=== PATIENT | female | born 1945 | race African-American/Black ===

== ENCOUNTER 2017-06-10 07:03 | Inpatient (IN) | payer MEDICARE, MEDICAID ==
[~2017-06-10] VITALS: Ht 165.1 cm; Wt 49.9 kg
[~2017-06-10 07:03] MED LIST: ACET1TAB12 PO; AMLO10TA80 PO; ASPI-1160 PO; ATEN-42 PO; ATOR10TA PO; LEVO250T2 PO
[2017-06-10 08:12] LABS: BASOPHILS % 0.9 % (0.0-2.0); EOSINOPHILS % 3.6 % (0.0-5.0); HEMATOCRIT. 41.9 % (36.0-48.0); HEMOGLOBIN. 13.9 g/dL (12.0-16.0); LYMPHOCYTES % 43.6 % (20.0-50.0); MEAN CORPUSCULAR HEMOGLOBIN 29.8 pg (28.0-32.0); MEAN CORPUSCULAR VOLUME 89.8 fL (81.0-99.0); MEAN PLATELET VOLUME 7.5 fl (7.4-10.4); MONOCYTES % 6.5 % (2.0-8.0); NEUTROPHILS % 45.4 % (40.0-76.0); PARTIAL THROMBOPLASTIN TIME 24.8 sec (23.4-31.0); PLATELET 300 x1000/uL (130-400); PROTHROMBIN TIME 10.4 sec (9.4-11.6); RED BLOOD CELL COUNT 4.66 mill/uL (4.2-5.4); RED CELL DISTRIBUTION WIDTH 13.8 % (11.6-14.6)
[2017-06-10 08:15] LABS: CHLORIDE 105 mEq/L (98-107)
[2017-06-10 08:21] LABS: CREATINE KINASE 40 IU/L (26-192); TROPONIN I < 0.02 ng/mL (0.00-0.04)
[2017-06-10 08:22] LABS: CREATINE KINASE MB FRACTION < 0.5 ng/mL (0.5-3.6)
[2017-06-10] MEDS ORDERED: NITROGLYCERIN OINT 1GM/INCH UDPKT TD STA (08:40)
[2017-06-10] MEDS ORDERED: ASPIRIN 81MG TABLET PO STA (08:40)
[2017-06-10] MEDS ORDERED: ENALAPRIL 2.5MG/2ML VIAL 2ML IV ONE (08:45)
[2017-06-10] MEDS ORDERED: CEFTRIAXONE 1 G PREMIX 50 ML IV ONE (09:15)
[2017-06-10 09:54] LABS: KETONES URINE NEGATIVE (NEGATIVE); LEUKOCYTE ESTERASE URINE NEGATIVE (NEGATIVE); NITRITE URINE NEGATIVE (NEGATIVE); OCCULT BLOOD URINE NEGATIVE (NEGATIVE); PH URINE 7.5 (4.5-8.0); PROTEIN URINE NEGATIVE (NEGATIVE); SPECIFIC GRAVITY URINE 1.009 (1.005-1.030); UROBILINOGEN URINE 0.2 E.U./dL (0.2-1.0)
[2017-06-10 09:55] LABS: CLARITY URINE CLEAR (CLEAR); COLOR URINE YELLOW (YELLOW)
[2017-06-10] MEDS ORDERED: HYDROCODONE/ACETAMINOPHEN 5/325MG TABLET PO PRN (17:30)
[2017-06-10] MEDS ORDERED: DOCUSATE SODIUM 100MG CAPSULE PO PRN (17:30)
[2017-06-10] MEDS ORDERED: CLONIDINE 0.1MG TABLET PO PRN (17:30)
[2017-06-10] MEDS ORDERED: GUAIFENESIN 200MG/10ML SUGAR FREE UDC PO PRN (17:30)
[2017-06-10] MEDS ORDERED: MORPHINE SULFATE 4 MG/ML CPJ (NOT FOR IM USE) IV PRN (17:30)
[2017-06-10] MEDS ORDERED: ONDANSETRON HCL 4MG/2ML VIAL IV PRN (17:30)
[2017-06-10] MEDS: ACETAMINOPHEN 325MG TABLET PO PRN (17:56)
[2017-06-11] VITALS (7 sets, daily range): BP systolic 119–136; BP diastolic 62–86
[2017-06-11 00:35] LABS: CREATINE KINASE 34 IU/L (26-192); CREATINE KINASE MB FRACTION 0.7 ng/mL (0.5-3.6); TROPONIN I < 0.02 ng/mL (0.00-0.04)
[2017-06-11] MEDS: ASPIRIN 81MG EC TABLET PO SCH (08:55)
[2017-06-11] MEDS: AMLODIPINE 10MG TABLET PO SCH (08:55)
[2017-06-11] MEDS: ENOXAPARIN 40MG/0.4ML SYR SUBCUT SCH (08:56)
[2017-06-11 09:49] LABS: BASOPHILS % 0.8 % (0.0-2.0); EOSINOPHILS % 3.2 % (0.0-5.0); HEMATOCRIT. 38.3 % (36.0-48.0); HEMOGLOBIN. 12.6 g/dL (12.0-16.0); LYMPHOCYTES % 34.7 % (20.0-50.0); MEAN CORPUSCULAR HEMOGLOBIN 29.4 pg (28.0-32.0); MEAN CORPUSCULAR VOLUME 89.8 fL (81.0-99.0); MEAN PLATELET VOLUME 7.8 fl (7.4-10.4); MONOCYTES % 6.7 % (2.0-8.0); NEUTROPHILS % 54.6 % (40.0-76.0); PLATELET 279 x1000/uL (130-400); RED BLOOD CELL COUNT 4.27 mill/uL (4.2-5.4); RED CELL DISTRIBUTION WIDTH 13.8 % (11.6-14.6)
[2017-06-11 12:36] LABS: CHLORIDE 104 mEq/L (98-107)
[2017-06-11 12:47] LABS: CREATINE KINASE 36 IU/L (26-192); CREATINE KINASE MB FRACTION < 0.5 ng/mL (0.5-3.6); HDL CHOLESTEROL 48 mg/dL (40-59); LDL CHOLESTEROL 129 mg/dL (5-100); TROPONIN I < 0.02 ng/mL (0.00-0.04)
[2017-06-12] VITALS: BP 121/53
[2017-06-12 04:00] VITALS: BP 125/76
[2017-06-12] MEDS: ACETAMINOPHEN 325MG TABLET PO PRN (05:22)
[2017-06-12 08:00] VITALS: BP_SYST 123; BP_SYST 146; BP_DIAS 69; BP_DIAS 70
[2017-06-12] MEDS: AMLODIPINE 10MG TABLET PO SCH (09:04)
[2017-06-12] MEDS: ASPIRIN 81MG EC TABLET PO SCH (09:04)
[2017-06-12] MEDS: ENOXAPARIN 40MG/0.4ML SYR SUBCUT SCH (09:05)
[2017-06-12] MEDS ORDERED: REGADENOSON 0.4 MG/5 ML IV ONE (10:30)
[2017-06-12 12:00] VITALS: BP 123/69
[2017-06-12 13:40] LABS: T4 FREE 1.01 ng/dL (0.76-1.46)
== END 2017-06-12 14:00 | disposition home or self-care (01) | DRG 244 ==
LOC: ER 07:44 → EDBEDREQ 08:30 → 6WST 09:28 → EDBEDREQ 09:36 → SUPCPDRO 17:23 → ENRESERV 21:24
PROVIDERS: ADMIT Hospitalist; ATTEND Hospitalist
DX: K57.90 Diverticulosis of intestine, part unspecified, without perforation or abscess without bleeding (principal); I10 Essential (primary) hypertension; R10.9 Unspecified abdominal pain; R07.89 Other chest pain; M19.90 Unspecified osteoarthritis, unspecified site; Z88.8 Allergy status to other drugs, medicaments and biological substances; Z79.899 Other long term (current) drug therapy; Z79.82 Long term (current) use of aspirin; Z98.891 History of uterine scar from previous surgery; Z68.1 Body mass index [BMI] 19.9 or less, adult
CPT/HCPCS: 36415; 71045; 74176; 80053; 80061; 81003; 82550; 82553; 83036; 83690; 83880; 84439; 84443; 84484; 85025; 85379; 85610; 85730; 87086; 93005; 93306; 93970; 96365; 96375; 99291; C1893; J0696; J1650; J3490

== ENCOUNTER 2018-05-11 08:01 | Inpatient (IN) | payer MEDICARE, MEDICAID ==
[~2018-05-11] VITALS: Ht 152.4 cm; Wt 53.8 kg
[~2018-05-11 08:01] MED LIST changes: -ATOR10TA PO; -LEVO250T2 PO
[2018-05-11 10:02] LABS: BASOPHILS % 0.7 % (0.0-2.0); EOSINOPHILS % 1.2 % (0.0-5.0); HEMATOCRIT. 47.5 % (36.0-48.0); HEMOGLOBIN. 15.6 g/dL (12.0-16.0); LYMPHOCYTES % 22.8 % (20.0-50.0); MEAN CORPUSCULAR HEMOGLOBIN 29.2 pg (28.0-32.0); MEAN CORPUSCULAR VOLUME 89.3 fL (81.0-99.0); MEAN PLATELET VOLUME 7.4 fl (7.4-10.4); MONOCYTES % 4.4 % (2.0-8.0); NEUTROPHILS % 70.9 % (40.0-76.0); PLATELET 337 x1000/uL (130-400); RED BLOOD CELL COUNT 5.33 mill/uL (4.2-5.4); RED CELL DISTRIBUTION WIDTH 14.2 % (11.6-14.6)
[2018-05-11 10:07] LABS: CHLORIDE 102 mEq/L (98-107)
[2018-05-11] MEDS ORDERED: SODIUM CHLORIDE 0.9% 1,000 ML IV ONE (10:33)
[2018-05-11] MEDS ORDERED: MECLIZINE 25MG TABLET PO ONE (10:45)
[2018-05-11 11:35] LABS: CLARITY URINE CLEAR (CLEAR); KETONES URINE NEGATIVE (NEGATIVE); LEUKOCYTE ESTERASE URINE NEGATIVE (NEGATIVE); NITRITE URINE NEGATIVE (NEGATIVE); OCCULT BLOOD URINE NEGATIVE (NEGATIVE); PROTEIN URINE NEGATIVE (NEGATIVE); SPECIFIC GRAVITY URINE 1.008 (1.005-1.030); UROBILINOGEN URINE 0.2 E.U./dL (0.2-1.0)
[2018-05-11 11:37] LABS: COLOR URINE PALE YELLOW (YELLOW)
[2018-05-11 14:00] VITALS: BP_SYST 127; BP_SYST 130; BP_SYST 139; BP_DIAS 66; BP_DIAS 68; BP_DIAS 70
[2018-05-11] MEDS ORDERED: CLONIDINE 0.1MG TABLET PO PRN (14:30)
[2018-05-11] MEDS ORDERED: ONDANSETRON HCL 4MG/2ML INJ IV PRN (14:30)
[2018-05-11] MEDS ORDERED: DOCUSATE SODIUM 100MG CAPSULE PO PRN (14:30)
[2018-05-11] MEDS ORDERED: MAGNESIUM/ALUMINUM HYDROXIDE/SIMETHICONE 30ML UDC PO PRN (14:30)
[2018-05-11] MEDS ORDERED: HYDROCODONE/ACETAMINOPHEN 5/325MG TABLET PO PRN (14:30)
[2018-05-11] MEDS ORDERED: GUAIFENESIN 200MG/10ML SUGAR FREE UDC PO PRN (14:30)
[2018-05-11] MEDS ORDERED: ACETAMINOPHEN 325MG TABLET PO PRN (14:30)
[2018-05-11 14:38] VITALS: BP 130/68
[2018-05-11 16:00] VITALS: BP 138/70
[2018-05-11 20:00] VITALS: BP 118/75
[2018-05-12] VITALS: BP 99/62
[2018-05-12 00:36] LABS: CREATINE KINASE 39 IU/L (26-192)
[2018-05-12 00:37] LABS: CREATINE KINASE MB FRACTION < 1.0 ng/mL (0.5-3.6)
[2018-05-12 04:00] VITALS: BP 99/55
[2018-05-12 07:15] LABS: BASOPHILS % 0.6 % (0.0-2.0); HEMATOCRIT. 39.2 % (36.0-48.0); HEMOGLOBIN. 12.8 g/dL (12.0-16.0); LYMPHOCYTES % 42.5 % (20.0-50.0); MEAN CORPUSCULAR HEMOGLOBIN 29.1 pg (28.0-32.0); MEAN CORPUSCULAR VOLUME 89.3 fL (81.0-99.0); MEAN PLATELET VOLUME 7.6 fl (7.4-10.4); MONOCYTES % 7.4 % (2.0-8.0); NEUTROPHILS % 47.5 % (40.0-76.0); PLATELET 289 x1000/uL (130-400); RED BLOOD CELL COUNT 4.39 mill/uL (4.2-5.4)
[2018-05-12 07:50] LABS: CHLORIDE 107 mEq/L (98-107)
[2018-05-12 08:00] VITALS: BP 116/69
[2018-05-12 08:13] LABS: CREATINE KINASE 33 IU/L (26-192); LDL CHOLESTEROL 129 mg/dL (5-100)
[2018-05-12 08:14] LABS: HDL CHOLESTEROL 49 mg/dL (40-59)
[2018-05-12 08:17] LABS: CREATINE KINASE MB FRACTION < 1.0 ng/mL (0.5-3.6)
[2018-05-12] MEDS: HYDROCHLOROTHIAZIDE 25MG TABLET PO SCH (08:40)
[2018-05-12 12:00] VITALS: BP_SYST 119; BP_SYST 124; BP_SYST 135; BP_DIAS 68; BP_DIAS 69; BP_DIAS 78
[2018-05-12] MEDS: PANTOPRAZOLE SODIUM 40 MG/VIAL IV SCH (13:13)
[2018-05-12 16:00] VITALS: BP 131/65
[2018-05-12 20:00] VITALS: BP_SYST 112; BP_SYST 123; BP_SYST 131; BP_SYST 137; BP_DIAS 66; BP_DIAS 71
[2018-05-13] VITALS (8 sets, daily range): BP systolic 81–157; BP diastolic 49–82
[2018-05-13] MEDS: HYDROCHLOROTHIAZIDE 25MG TABLET PO SCH (09:00)
[2018-05-13] MEDS: PANTOPRAZOLE SODIUM 40 MG/VIAL IV SCH (09:17)
[2018-05-13] MEDS: SODIUM CHLORIDE 0.9% 1,000 ML IV SCH ×2 (13:00→22:41)
[2018-05-14] VITALS: BP 132/68
[2018-05-14 04:00] VITALS: BP 107/60
[2018-05-14 07:15] LABS: BASOPHILS % 0.6 % (0.0-2.0); CHLORIDE 104 mEq/L (98-107); EOSINOPHILS % 3.3 % (0.0-5.0); HEMATOCRIT. 36.8 % (36.0-48.0); HEMOGLOBIN. 12.3 g/dL (12.0-16.0); LYMPHOCYTES % 50.3 % (20.0-50.0); MEAN CORPUSCULAR HEMOGLOBIN 29.7 pg (28.0-32.0); MEAN CORPUSCULAR VOLUME 89.2 fL (81.0-99.0); MEAN PLATELET VOLUME 7.5 fl (7.4-10.4); NEUTROPHILS % 37.8 % (40.0-76.0); PLATELET 265 x1000/uL (130-400); RED BLOOD CELL COUNT 4.13 mill/uL (4.2-5.4)
[2018-05-14 08:00] VITALS: BP 120/59
[2018-05-14] MEDS ORDERED: FAMOTIDINE 20MG/2ML VIAL IV SCH (09:00)
[2018-05-14] MEDS: HYDROCHLOROTHIAZIDE 25MG TABLET PO SCH (09:00)
[2018-05-14 12:00] VITALS: BP 109/52
[2018-05-14 12:26] VITALS: BP 113/63
[2018-05-14 12:27] VITALS: BP 131/79
[2018-05-14] MEDS ORDERED: ATORVASTATIN CALCIUM 20MG TABLET PO SCH (21:00)
== END 2018-05-14 15:00 | disposition home health service (06) | DRG 48 ==
LOC: ER 08:01 → ENRESERV 09:44 → 5WST 12:12 → EDBEDREQ 12:15 → SUPCPDRO 14:08
PROVIDERS: ADMIT Hospitalist; ATTEND Hospitalist
DX: G90.8 Other disorders of autonomic nervous system (principal); J44.9 Chronic obstructive pulmonary disease, unspecified; E78.5 Hyperlipidemia, unspecified; I10 Essential (primary) hypertension; I95.1 Orthostatic hypotension; R10.9 Unspecified abdominal pain; Z86.73 Personal history of transient ischemic attack (TIA), and cerebral infarction without residual deficits; Z88.8 Allergy status to other drugs, medicaments and biological substances; Z79.899 Other long term (current) drug therapy; Z98.891 History of uterine scar from previous surgery
CPT/HCPCS: 36415; 71045; 76700; 80061; 82550; 82553; 82962; 83735; 83880; 84484; 93005; 93306; 93880; 99285; C1893; C9113; J2405; J3490; J7030; J8597; A4315

== ENCOUNTER 2018-07-15 19:44 | Inpatient (IN) | payer MEDICARE, MEDICAID ==
[~2018-07-15] VITALS: Ht 152.4 cm; Wt 60.6 kg
[~2018-07-15 19:44] MED LIST changes: -ATEN-42 PO
[2018-07-15] MEDS ORDERED: NITROGLYCERIN OINT 1GM/INCH UDPKT TD ONE (20:30)
[2018-07-15 20:33] LABS: BASOPHILS % 1.3 % (0.0-2.0); EOSINOPHILS % 0.6 % (0.0-5.0); HEMATOCRIT. 41.8 % (36.0-48.0); HEMOGLOBIN. 14.2 g/dL (12.0-16.0); LYMPHOCYTES % 30.4 % (20.0-50.0); MEAN CORPUSCULAR HEMOGLOBIN 29.6 pg (28.0-32.0); MEAN CORPUSCULAR VOLUME 87.3 fL (81.0-99.0); MEAN PLATELET VOLUME 7.6 fl (7.4-10.4); MONOCYTES % 4.4 % (2.0-8.0); NEUTROPHILS % 63.3 % (40.0-76.0); PLATELET 360 x1000/uL (130-400); RED BLOOD CELL COUNT 4.79 mill/uL (4.2-5.4); RED CELL DISTRIBUTION WIDTH 13.7 % (11.6-14.6)
[2018-07-15 20:36] LABS: CHLORIDE 105 mEq/L (98-107)
[2018-07-15 20:38] LABS: PARTIAL THROMBOPLASTIN TIME 24.9 sec (23.4-31.0); PROTHROMBIN TIME 10.1 sec (9.6-11.0)
[2018-07-15 20:47] LABS: CLARITY URINE CLEAR (CLEAR); COLOR URINE YELLOW (YELLOW); KETONES URINE 1+ (NEGATIVE); LEUKOCYTE ESTERASE URINE 1+ (NEGATIVE); NITRITE URINE NEGATIVE (NEGATIVE); OCCULT BLOOD URINE TRACE (NEGATIVE); PH URINE 5.5 (4.5-8.0); PROTEIN URINE NEGATIVE (NEGATIVE); SPECIFIC GRAVITY URINE 1.012 (1.005-1.030); UROBILINOGEN URINE 0.2 E.U./dL (0.2-1.0)
[2018-07-15] MEDS ORDERED: HEPARIN 25,000 UNITS PREMIX 500 ML IV ONE (21:15)
[2018-07-15] MEDS ORDERED: METOPROLOL TARTRATE 25MG TABLET PO ONE (21:15)
[2018-07-15] MEDS ORDERED: HEPARIN 5000 UNITS/ML VIAL IV ONE (21:15)
[2018-07-15] MEDS ORDERED: HYDROCODONE/ACETAMINOPHEN 5/325MG TABLET PO PRN (21:45)
[2018-07-15] MEDS ORDERED: IPRATROPIUM/ALBUTEROL 0.5-3(2.5)MG/3ML NEB INH PRN (21:45)
[2018-07-15] MEDS ORDERED: CLONIDINE 0.1MG TABLET PO PRN (21:45)
[2018-07-15] MEDS ORDERED: MAGNESIUM/ALUMINUM HYDROXIDE/SIMETHICONE 30ML UDC PO PRN (21:45)
[2018-07-15] MEDS ORDERED: HEPARIN BOLUS PRN aPTT 30-44 IV (22:00)
[2018-07-15] MEDS ORDERED: HEPARIN BOLUS PRN aPTT <30 IV (22:00)
[2018-07-15] MEDS ORDERED: HEPARIN 25,000 UNITS PREMIX 500 ML IV SCH (22:00)
[2018-07-15] MEDS ORDERED: ATORVASTATIN CALCIUM 40MG TABLET PO NR (22:45)
[2018-07-16] VITALS (12 sets, daily range): BP systolic 87–115; BP diastolic 48–68
[2018-07-16] MEDS: ONDANSETRON HCL 4MG/2ML INJ IV PRN (00:20)
[2018-07-16 00:21] LABS: CHLORIDE 106 mEq/L (98-107)
[2018-07-16 00:29] LABS: CREATINE KINASE 117 IU/L (26-192)
[2018-07-16] MEDS ORDERED: ATORVASTATIN CALCIUM 40MG TABLET PO SCH (01:00)
[2018-07-16] MEDS ORDERED: HEPARIN 25,000 UNITS PREMIX 500 ML IV SCH (04:15)
[2018-07-16 06:04] LABS: BASOPHILS % 0.6 % (0.0-2.0); EOSINOPHILS % 0.7 % (0.0-5.0); HEMOGLOBIN. 14.1 g/dL (12.0-16.0); LYMPHOCYTES % 25.1 % (20.0-50.0); MEAN PLATELET VOLUME 8.2 fl (7.4-10.4); NEUTROPHILS % 67.6 % (40.0-76.0); PLATELET 303 x1000/uL (130-400); RED BLOOD CELL COUNT 4.71 mill/uL (4.2-5.4); RED CELL DISTRIBUTION WIDTH 13.9 % (11.6-14.6)
[2018-07-16] MEDS: ASPIRIN 81MG EC TABLET PO SCH (08:16)
[2018-07-16] MEDS: ENOXAPARIN 40MG/0.4ML SYR SUBCUT SCH (08:17)
[2018-07-16] MEDS: METOPROLOL TARTRATE 25MG TABLET PO SCH ×2 (08:17→21:00)
[2018-07-16 08:45] LABS: *AMPHETAMINES SCREEN URINE NEGATIVE (NEGATIVE); *BARBITURATES SCREEN URINE NEGATIVE (NEGATIVE); *BENZODIAZEPINES SCREEN URINE NEGATIVE (NEGATIVE); *COCAINE SCREEN URINE NEGATIVE (NEGATIVE)
[2018-07-16 08:46] LABS: CANNABINOID URINE SCREEN NEGATIVE (NEGATIVE); METHADONE URINE SCREEN NEGATIVE (NEGATIVE); OPIATES URINE SCREEN NEGATIVE (NEGATIVE); PHENCYCLIDINE URINE SCREEN NEGATIVE (NEGATIVE)
[2018-07-16 09:44] LABS: CHLORIDE 106 mEq/L (98-107)
[2018-07-16 09:51] LABS: LDL CHOLESTEROL 147 mg/dL (5-100)
[2018-07-16 09:53] LABS: CREATINE KINASE 116 IU/L (26-192); HDL CHOLESTEROL 55 mg/dL (40-59)
[2018-07-16 09:57] LABS: CREATINE KINASE MB FRACTION 8.1 ng/mL (0.5-3.6)
[2018-07-17] VITALS (12 sets, daily range): BP systolic 93–131; BP diastolic 55–85
[2018-07-17 08:14] LABS: BASOPHILS % 1.2 % (0.0-2.0); EOSINOPHILS % 2.3 % (0.0-5.0); HEMATOCRIT. 37.9 % (36.0-48.0); HEMOGLOBIN. 12.7 g/dL (12.0-16.0); LYMPHOCYTES % 49.9 % (20.0-50.0); MEAN CORPUSCULAR HEMOGLOBIN 29.7 pg (28.0-32.0); MEAN CORPUSCULAR VOLUME 88.5 fL (81.0-99.0); MEAN PLATELET VOLUME 7.6 fl (7.4-10.4); MONOCYTES % 7.6 % (2.0-8.0); PLATELET 288 x1000/uL (130-400); RED BLOOD CELL COUNT 4.28 mill/uL (4.2-5.4); RED CELL DISTRIBUTION WIDTH 13.8 % (11.6-14.6)
[2018-07-17] MEDS ORDERED: DEXTROSE 50% WATER 50ML SYRINGE IV PRN (08:30)
[2018-07-17 08:50] LABS: CHLORIDE 106 mEq/L (98-107)
[2018-07-17] MEDS: METOPROLOL TARTRATE 25MG TABLET PO SCH ×2 (09:00→21:25)
[2018-07-17] MEDS: ENOXAPARIN 40MG/0.4ML SYR SUBCUT SCH (09:09)
[2018-07-17] MEDS: DOCUSATE SODIUM 100MG CAPSULE PO PRN (09:09)
[2018-07-17] MEDS: ASPIRIN 81MG EC TABLET PO SCH (09:09)
[2018-07-17] MEDS ORDERED: ENOXAPARIN 60MG/0.6ML SYR SUBCUT NR (09:45)
[2018-07-17] MEDS ORDERED: ENOXAPARIN 60MG/0.6ML SYR SUBCUT SCH (10:00)
[2018-07-17] MEDS: ASPIRIN 325MG EC TABLET PO SCH (10:33)
[2018-07-17] MEDS: BLOOD SUGAR DIAGNOSTIC STRIP TEST SCH ×3 (11:41→21:24)
[2018-07-17] MEDS: INSULIN LISPRO 100 UNITS/ML SUBCUT SCH ×3 (11:42→21:00)
[2018-07-17] MEDS: ATORVASTATIN CALCIUM 40MG TABLET PO SCH (21:00)
[2018-07-18] VITALS (17 sets, daily range): BP systolic 102–144; BP diastolic 54–123
[2018-07-18] MEDS: ONDANSETRON HCL 4MG/2ML INJ IV PRN (03:17)
[2018-07-18 06:08] LABS: HEMATOCRIT. 37.8 % (36.0-48.0); HEMOGLOBIN. 12.8 g/dL (12.0-16.0); MEAN CORPUSCULAR VOLUME 88.6 fL (81.0-99.0); MEAN PLATELET VOLUME 7.8 fl (7.4-10.4); PLATELET 301 x1000/uL (130-400); RED BLOOD CELL COUNT 4.27 mill/uL (4.2-5.4); RED CELL DISTRIBUTION WIDTH 14.1 % (11.6-14.6)
[2018-07-18] MEDS: BLOOD SUGAR DIAGNOSTIC STRIP TEST SCH ×4 (06:50→21:07)
[2018-07-18] MEDS: INSULIN LISPRO 100 UNITS/ML SUBCUT SCH ×4 (06:51→21:00)
[2018-07-18 06:55] LABS: CHLORIDE 109 mEq/L (98-107)
[2018-07-18] MEDS: METOPROLOL TARTRATE 25MG TABLET PO SCH ×2 (08:10→21:08)
[2018-07-18] MEDS: SODIUM CHLORIDE 0.45% 1,000 ML IV SCH (08:10)
[2018-07-18] MEDS: ASPIRIN 325MG EC TABLET PO SCH (08:10)
[2018-07-18] MEDS ORDERED: HEPARIN SODIUM 1,000 UNIT/1ML VIAL IV ONE (08:54)
[2018-07-18] MEDS ORDERED: NICARDIPINE 100MCG/ML 10ML VIAL (CATH LAB) IV ONE (08:55)
[2018-07-18] MEDS ORDERED: NITROGLYCERIN 50MCG/ML 10ML VIAL (CATH LAB) IV ONE (08:55)
[2018-07-18 12:11] LABS: PLATELET ESTIMATE NORMAL
[2018-07-18] MEDS ORDERED: LIDOCAINE HCL 1% 20ML VIAL (Pyxis) INJ ONE (13:15)
[2018-07-18] MEDS ORDERED: IOHEXOL-300 100 ML BOTTLE ONE (13:16)
[2018-07-18] MEDS ORDERED: FENTANYL CITRATE/PF 50MCG/ML 2ML VIAL ONE (13:17)
[2018-07-18] MEDS ORDERED: MIDAZOLAM HCL 2 MG/2 ML VIAL ONE (13:17)
[2018-07-18] MEDS ORDERED: ACETAMINOPHEN 325MG TABLET PO PRN (14:00)
[2018-07-18] MEDS ORDERED: ATROPINE SULFATE 1MG/10ML SYR IV PRN (14:00)
[2018-07-18] MEDS ORDERED: ONDANSETRON HCL 4MG/2ML INJ IV PRN (14:00)
[2018-07-18] MEDS: ACETAMINOPHEN 325MG TABLET PO PRN (19:17)
[2018-07-18] MEDS: ATORVASTATIN CALCIUM 40MG TABLET PO SCH (21:00)
[2018-07-18] MEDS ORDERED: ENOXAPARIN 60MG/0.6ML SYR SUBCUT SCH (22:00)
[2018-07-19] VITALS (8 sets, daily range): BP systolic 94–137; BP diastolic 49–91
[2018-07-19] MEDS: ACETAMINOPHEN 325MG TABLET PO PRN (03:45)
[2018-07-19] MEDS: SODIUM CHLORIDE 0.45% 1,000 ML IV SCH (05:20)
[2018-07-19] MEDS: INSULIN LISPRO 100 UNITS/ML SUBCUT SCH (06:53)
[2018-07-19] MEDS: BLOOD SUGAR DIAGNOSTIC STRIP TEST SCH (06:53)
[2018-07-19 06:56] LABS: BASOPHILS % 0.6 % (0.0-2.0); EOSINOPHILS % 2.8 % (0.0-5.0); HEMOGLOBIN. 12.3 g/dL (12.0-16.0); LYMPHOCYTES % 39.1 % (20.0-50.0); MEAN CORPUSCULAR HEMOGLOBIN 29.4 pg (28.0-32.0); MEAN CORPUSCULAR VOLUME 88.7 fL (81.0-99.0); MONOCYTES % 8.8 % (2.0-8.0); NEUTROPHILS % 48.7 % (40.0-76.0); PLATELET 284 x1000/uL (130-400); RED BLOOD CELL COUNT 4.17 mill/uL (4.2-5.4); RED CELL DISTRIBUTION WIDTH 13.7 % (11.6-14.6)
[2018-07-19 07:12] LABS: CHLORIDE 106 mEq/L (98-107)
[2018-07-19] MEDS: ASPIRIN 325MG EC TABLET PO SCH (08:10)
[2018-07-19] MEDS: DOCUSATE SODIUM 100MG CAPSULE PO PRN (08:11)
[2018-07-19] MEDS: METOPROLOL TARTRATE 25MG TABLET PO SCH ×2 (09:00→09:22)
[2018-07-19] MEDS ORDERED: LIP40 PO (10:46)
[2018-07-19] MEDS ORDERED: DOCU-138 PO (10:46)
[2018-07-19] MEDS ORDERED: METO-385 MT (10:46)
[2018-07-19] MEDS ORDERED: ASA5EC PO (10:46)
== END 2018-07-19 12:10 | disposition home or self-care (01) | DRG 190 ==
LOC: ER 19:44 → 3WST 21:43 → ENRESERV 22:44
PROVIDERS: ADMIT Internal Medicine; ATTEND Internal Medicine
PROC: 4A023N7 Measurement of Cardiac Sampling and Pressure, Left Heart, Percutaneous Approach (ICD-10-PCS; principal; 2018-07-18)
PROC: B211YZZ Fluoroscopy of Multiple Coronary Arteries using Other Contrast (ICD-10-PCS; 2018-07-18)
PROC: B215YZZ Fluoroscopy of Left Heart using Other Contrast (ICD-10-PCS; 2018-07-18)
DX: I21.4 Non-ST elevation (NSTEMI) myocardial infarction (principal); I51.81 Takotsubo syndrome; E78.5 Hyperlipidemia, unspecified; M54.9 Dorsalgia, unspecified; G89.29 Other chronic pain; K57.90 Diverticulosis of intestine, part unspecified, without perforation or abscess without bleeding; M19.90 Unspecified osteoarthritis, unspecified site; R73.9 Hyperglycemia, unspecified; Z82.49 Family history of ischemic heart disease and other diseases of the circulatory system; Z86.73 Personal history of transient ischemic attack (TIA), and cerebral infarction without residual deficits; Z88.8 Allergy status to other drugs, medicaments and biological substances; Z79.899 Other long term (current) drug therapy; Z87.891 Personal history of nicotine dependence; Z79.82 Long term (current) use of aspirin; I10 Essential (primary) hypertension
CPT/HCPCS: 36415; 71045; 80048; 80061; 80305; 82550; 82553; 82962; 83735; 84443; 84484; 93005; 93306; 93458; 93970; 99285; C1769; C1887; C1893; J1644; J1650; J2250; J2405; J3010; J3490; Q9967

== ENCOUNTER 2018-09-21 13:22 | Emergency (ER) | payer MEDICARE, MEDICAID ==
[~2018-09-21] VITALS: Ht 170.2 cm; Wt 74.0 kg
[~2018-09-21 13:22] MED LIST changes: -AMLO10TA80 PO; +ASA5EC PO; -ASPI-1160 PO; +DOCU-138 PO; +LIP40 PO; +METO-385 MT
[2018-09-21 15:30] LABS: BASOPHILS % 1.1 % (0.0-2.0); EOSINOPHILS % 2.6 % (0.0-5.0); HEMATOCRIT. 38.9 % (36.0-48.0); HEMOGLOBIN. 12.8 g/dL (12.0-16.0); LYMPHOCYTES % 41.6 % (20.0-50.0); MEAN CORPUSCULAR HEMOGLOBIN 29.1 pg (28.0-32.0); MEAN CORPUSCULAR VOLUME 88.2 fL (81.0-99.0); MEAN PLATELET VOLUME 7.5 fl (7.4-10.4); NEUTROPHILS % 49.7 % (40.0-76.0); PLATELET 280 x1000/uL (130-400); RED BLOOD CELL COUNT 4.41 mill/uL (4.2-5.4); RED CELL DISTRIBUTION WIDTH 14.9 % (11.6-14.6)
[2018-09-21 15:35] LABS: CHLORIDE 108 mEq/L (98-107)
[2018-09-21 16:50] VITALS: BP 142/65
== END 2018-09-21 17:07 | disposition home or self-care (01) ==
LOC: ER 13:22
DX: R51 Headache (principal); R42 Dizziness and giddiness; I10 Essential (primary) hypertension; I25.2 Old myocardial infarction; Z79.82 Long term (current) use of aspirin; Z88.6 Allergy status to analgesic agent
CPT/HCPCS: 36415; 80048; 84484; 93005; 99284

== ENCOUNTER 2018-11-14 14:35 | Inpatient (IN) | payer MEDICARE, MEDICAID ==
[~2018-11-14] VITALS: Ht 152.4 cm; Wt 52.2 kg
[2018-11-14] MEDS ORDERED: SODIUM CHLORIDE 0.9% 1,000 ML IV ONE (14:57)
[2018-11-14 15:19] LABS: BASOPHILS % 1.1 % (0.0-2.0); EOSINOPHILS % 1.1 % (0.0-5.0); HEMATOCRIT. 37.2 % (36.0-48.0); HEMOGLOBIN. 12.5 g/dL (12.0-16.0); LYMPHOCYTES % 28.2 % (20.0-50.0); MEAN CORPUSCULAR HEMOGLOBIN 29.1 pg (28.0-32.0); MEAN CORPUSCULAR VOLUME 86.7 fL (81.0-99.0); MEAN PLATELET VOLUME 7.2 fl (7.4-10.4); MONOCYTES % 4.8 % (2.0-8.0); NEUTROPHILS % 64.8 % (40.0-76.0); PLATELET 282 x1000/uL (130-400); RED BLOOD CELL COUNT 4.29 mill/uL (4.2-5.4); RED CELL DISTRIBUTION WIDTH 14.6 % (11.6-14.6)
[2018-11-14 15:22] LABS: CHLORIDE 107 mEq/L (98-107)
[2018-11-14 15:26] LABS: D-DIMER 0.47 mg/L FEU (<0.50); PARTIAL THROMBOPLASTIN TIME 25.8 sec (23.4-31.0); PROTHROMBIN TIME 10.4 sec (9.6-11.0)
[2018-11-14] MEDS ORDERED: ONDANSETRON HCL 4MG/2ML INJ IV PRN (17:30)
[2018-11-14] MEDS ORDERED: IPRATROPIUM/ALBUTEROL 0.5-3(2.5)MG/3ML NEB INH PRN (17:30)
[2018-11-14] MEDS ORDERED: ACETAMINOPHEN 325MG TABLET PO PRN (17:30)
[2018-11-14] MEDS ORDERED: CLONIDINE 0.1MG TABLET PO PRN (17:30)
[2018-11-14] MEDS ORDERED: DOCUSATE SODIUM 100MG CAPSULE PO PRN (17:30)
[2018-11-14] MEDS ORDERED: GUAIFENESIN 200MG/10ML SUGAR FREE UDC PO PRN (17:30)
[2018-11-14] MEDS ORDERED: POTASSIUM CHLORIDE 20MEQ TABLET SR PO NR (17:30)
[2018-11-14] MEDS ORDERED: MAGNESIUM/ALUMINUM HYDROXIDE/SIMETHICONE 30ML UDC PO PRN (17:30)
[2018-11-14] MEDS ORDERED: NITROGLYCERIN 0.4MG TABLET SL SL PRN (17:30)
[2018-11-14] MEDS ORDERED: TRAMADOL 50MG TABLET PO PRN (17:30)
[2018-11-14 18:21] LABS: ETHANOL BLOOD < 10 mg/dL
[2018-11-14 18:23] LABS: LDL CHOLESTEROL 132 mg/dL (5-100)
[2018-11-14 18:26] LABS: HDL CHOLESTEROL 48 mg/dL (40-59)
[2018-11-14 20:00] VITALS: BP_SYST 124; BP_SYST 154; BP_DIAS 65; BP_DIAS 81
[2018-11-14] MEDS: ATORVASTATIN CALCIUM 10MG TABLET PO SCH (21:00)
[2018-11-14] MEDS ORDERED: ZOLPIDEM TARTRATE 5MG TABLET PO PRN (21:00)
[2018-11-14] MEDS: ENOXAPARIN 40MG/0.4ML SYR SUBCUT SCH (21:27)
[2018-11-14] MEDS: METOPROLOL TARTRATE 25MG TABLET PO SCH (21:28)
[2018-11-14] MEDS: FAMOTIDINE 20MG TABLET PO SCH (21:29)
[2018-11-14] MEDS ORDERED: AMLO10TA4 PO (22:43)
[2018-11-14 23:57] LABS: *BARBITURATES SCREEN URINE NEGATIVE (NEGATIVE); *BENZODIAZEPINES SCREEN URINE NEGATIVE (NEGATIVE); *COCAINE SCREEN URINE NEGATIVE (NEGATIVE); CANNABINOID URINE SCREEN NEGATIVE (NEGATIVE); METHADONE URINE SCREEN NEGATIVE (NEGATIVE); OPIATES URINE SCREEN NEGATIVE (NEGATIVE); PHENCYCLIDINE URINE SCREEN NEGATIVE (NEGATIVE)
[2018-11-14 23:58] LABS: *AMPHETAMINES SCREEN URINE NEGATIVE (NEGATIVE)
[2018-11-15] VITALS: BP 158/88
[2018-11-15 00:46] LABS: CREATINE KINASE 35 IU/L (26-192)
[2018-11-15 00:47] LABS: CREATINE KINASE MB FRACTION < 1.0 ng/mL (0.5-3.6)
[2018-11-15 04:00] VITALS: BP 129/66
[2018-11-15 07:17] LABS: HEMATOCRIT. 37.1 % (36.0-48.0); HEMOGLOBIN. 12.5 g/dL (12.0-16.0); LYMPHOCYTES % 35.8 % (20.0-50.0); MEAN CORPUSCULAR HEMOGLOBIN 29.5 pg (28.0-32.0); MEAN CORPUSCULAR VOLUME 87.3 fL (81.0-99.0); MEAN PLATELET VOLUME 7.8 fl (7.4-10.4); MONOCYTES % 7.1 % (2.0-8.0); NEUTROPHILS % 54.1 % (40.0-76.0); PLATELET 297 x1000/uL (130-400); RED BLOOD CELL COUNT 4.25 mill/uL (4.2-5.4); RED CELL DISTRIBUTION WIDTH 14.6 % (11.6-14.6)
[2018-11-15 07:22] LABS: CHLORIDE 105 mEq/L (98-107)
[2018-11-15 07:31] LABS: CREATINE KINASE 32 IU/L (26-192)
[2018-11-15 07:33] LABS: CREATINE KINASE MB FRACTION < 1.0 ng/mL (0.5-3.6)
[2018-11-15 08:00] VITALS: BP 138/77
[2018-11-15] MEDS: AMLODIPINE 5MG TABLET PO SCH (10:00)
[2018-11-15] MEDS: FAMOTIDINE 20MG TABLET PO SCH ×2 (10:00→20:51)
[2018-11-15] MEDS: ASPIRIN 325MG EC TABLET PO SCH (10:01)
[2018-11-15] MEDS: METOPROLOL TARTRATE 25MG TABLET PO SCH ×2 (10:01→20:52)
[2018-11-15 12:00] VITALS: BP 134/71
[2018-11-15 16:00] VITALS: BP 114/68
[2018-11-15] MEDS: ENOXAPARIN 40MG/0.4ML SYR SUBCUT SCH (17:33)
[2018-11-15 20:00] VITALS: BP 122/71
[2018-11-15] MEDS: ATORVASTATIN CALCIUM 10MG TABLET PO SCH ×2 (20:51→20:57)
[2018-11-16] VITALS: BP 128/82
[2018-11-16 04:00] VITALS: BP 128/66
[2018-11-16 07:32] LABS: BASOPHILS % 0.8 % (0.0-2.0); EOSINOPHILS % 3.3 % (0.0-5.0); HEMATOCRIT. 37.2 % (36.0-48.0); HEMOGLOBIN. 12.6 g/dL (12.0-16.0); LYMPHOCYTES % 44.7 % (20.0-50.0); MEAN CORPUSCULAR HEMOGLOBIN 29.8 pg (28.0-32.0); MEAN CORPUSCULAR VOLUME 88.3 fL (81.0-99.0); MEAN PLATELET VOLUME 7.8 fl (7.4-10.4); MONOCYTES % 7.5 % (2.0-8.0); NEUTROPHILS % 43.7 % (40.0-76.0); PLATELET 260 x1000/uL (130-400); RED BLOOD CELL COUNT 4.21 mill/uL (4.2-5.4); RED CELL DISTRIBUTION WIDTH 14.8 % (11.6-14.6)
[2018-11-16 07:55] LABS: CHLORIDE 104 mEq/L (98-107)
[2018-11-16 08:00] VITALS: BP 133/70
[2018-11-16] MEDS: METOPROLOL TARTRATE 25MG TABLET PO SCH (08:24)
[2018-11-16] MEDS: FAMOTIDINE 20MG TABLET PO SCH (08:24)
[2018-11-16] MEDS: ASPIRIN 325MG EC TABLET PO SCH (08:25)
[2018-11-16] MEDS: AMLODIPINE 5MG TABLET PO SCH (08:25)
[2018-11-16] MEDS ORDERED: POTASSIUM CHLORIDE 20MEQ TABLET SR PO NR (11:15)
[2018-11-16 12:00] VITALS: BP 125/78
[2018-11-16 12:09] VITALS: BP_SYST 125; BP_SYST 133; BP_DIAS 70; BP_DIAS 78
== END 2018-11-16 13:00 | disposition home health service (06) | DRG 198 ==
LOC: ER 15:25 → 5WST 17:03 → SUPCPDRO 17:16 → ENRESERV 17:23
PROVIDERS: ADMIT Internal Medicine; ATTEND Internal Medicine
DX: R07.89 Other chest pain (principal); I25.10 Atherosclerotic heart disease of native coronary artery without angina pectoris; I51.81 Takotsubo syndrome; I35.8 Other nonrheumatic aortic valve disorders; E78.5 Hyperlipidemia, unspecified; E87.6 Hypokalemia; E78.00 Pure hypercholesterolemia, unspecified; I25.2 Old myocardial infarction; Z86.73 Personal history of transient ischemic attack (TIA), and cerebral infarction without residual deficits; Z82.49 Family history of ischemic heart disease and other diseases of the circulatory system; Z87.891 Personal history of nicotine dependence; Z88.8 Allergy status to other drugs, medicaments and biological substances; Z79.899 Other long term (current) drug therapy; Z79.01 Long term (current) use of anticoagulants; Z79.82 Long term (current) use of aspirin
CPT/HCPCS: 36415; 71045; 80048; 80061; 80305; 80320; 82550; 82553; 83036; 83735; 83880; 84484; 85379; 93005; 93970; 96360; 99285; J1650; J7030; G0480

== ENCOUNTER 2018-12-30 09:26 | Emergency (ER) | payer MEDICARE, MEDICAID ==
[~2018-12-30] VITALS: Ht 154.9 cm; Wt 48.0 kg
[~2018-12-30 09:26] MED LIST changes: +AMLO10TA4 PO; -ASA5EC PO; +ASPI325T85 PO
[2018-12-30] MEDS ORDERED: SODIUM CHLORIDE 0.9% 1,000 ML IV ONE (10:03)
[2018-12-30] MEDS ORDERED: KETOROLAC 30MG/ML VIAL IV STA (10:03)
[2018-12-30] MEDS ORDERED: METOCLOPRAMIDE HCL 10MG/2ML VIAL IV ONE (10:15)
[2018-12-30 10:32] LABS: BASOPHILS % 1.7 % (0.0-2.0); EOSINOPHILS % 1.8 % (0.0-5.0); HEMATOCRIT. 38.7 % (36.0-48.0); HEMOGLOBIN. 12.9 g/dL (12.0-16.0); LYMPHOCYTES % 36.6 % (20.0-50.0); MEAN CORPUSCULAR HEMOGLOBIN 29.4 pg (28.0-32.0); MEAN CORPUSCULAR VOLUME 88.4 fL (81.0-99.0); MEAN PLATELET VOLUME 7.9 fl (7.4-10.4); MONOCYTES % 6.2 % (2.0-8.0); NEUTROPHILS % 53.7 % (40.0-76.0); PLATELET 294 x1000/uL (130-400); RED BLOOD CELL COUNT 4.38 mill/uL (4.2-5.4); RED CELL DISTRIBUTION WIDTH 14.5 % (11.6-14.6)
[2018-12-30 10:36] LABS: CHLORIDE 109 mEq/L (98-107)
[2018-12-30 12:07] VITALS: BP 148/77
== END 2018-12-30 12:11 | disposition left against medical advice (07) ==
LOC: ER 09:26
DX: B34.9 Viral infection, unspecified (principal); I10 Essential (primary) hypertension; I25.2 Old myocardial infarction; Z79.82 Long term (current) use of aspirin; Z79.899 Other long term (current) drug therapy; Z88.8 Allergy status to other drugs, medicaments and biological substances
CPT/HCPCS: 36415; 71045; 80053; 85025; 96374; 96375; 99284; J1885; J2765; J7030; Z7610

== ENCOUNTER 2019-02-12 08:42 | Emergency (ER) | payer MEDICARE, MEDICAID ==
[~2019-02-12] VITALS: Ht 160 cm; Wt 55.0 kg
[2019-02-12] MEDS ORDERED: KETOROLAC 60MG/2ML VIAL IM ONE ×2 (09:30)
[2019-02-12 09:55] VITALS: BP 156/69
== END 2019-02-12 10:00 | disposition home or self-care (01) ==
LOC: ER 08:58
DX: M54.5 Low back pain (principal); I10 Essential (primary) hypertension; I25.2 Old myocardial infarction; Z98.890 Other specified postprocedural states; Z79.82 Long term (current) use of aspirin; Z79.899 Other long term (current) drug therapy; Z88.8 Allergy status to other drugs, medicaments and biological substances
CPT/HCPCS: 96372; 99283; J1885

== ENCOUNTER 2019-12-18 07:47 | Inpatient (IN) | payer MEDICARE, MEDICAID ==
[~2019-12-18] VITALS: Ht 167.6 cm; Wt 59.0 kg
[2019-12-18 09:17] LABS: CHLORIDE 104 mEq/L (98-107)
[2019-12-18 09:20] LABS: PROTHROMBIN TIME 10.4 sec (9.6-11.0)
[2019-12-18 09:22] LABS: BASOPHILS % 1.4 % (0.0-2.0); EOSINOPHILS % 2.3 % (0.0-5.0); HEMATOCRIT. 40.8 % (36.0-48.0); HEMOGLOBIN. 13.7 g/dL (12.0-16.0); LYMPHOCYTES % 27.3 % (20.0-50.0); MEAN CORPUSCULAR HEMOGLOBIN 29.7 pg (28.0-32.0); MEAN CORPUSCULAR VOLUME 88.6 fL (81.0-99.0); MEAN PLATELET VOLUME 8.1 fl (7.4-10.4); MONOCYTES % 5.6 % (2.0-8.0); NEUTROPHILS % 63.4 % (40.0-76.0); PLATELET 307 x1000/uL (130-400); RED CELL DISTRIBUTION WIDTH 13.6 % (11.6-14.6)
[2019-12-18 09:34] LABS: CLARITY URINE CLEAR (CLEAR); COLOR URINE YELLOW (YELLOW); KETONES URINE NEGATIVE (NEGATIVE); LEUKOCYTE ESTERASE URINE TRACE (NEGATIVE); NITRITE URINE NEGATIVE (NEGATIVE); OCCULT BLOOD URINE NEGATIVE (NEGATIVE); PH URINE 7.5 (4.5-8.0); PROTEIN URINE NEGATIVE (NEGATIVE); SPECIFIC GRAVITY URINE 1.009 (1.005-1.030); UROBILINOGEN URINE 0.2 E.U./dL (0.2-1.0)
[2019-12-18] MEDS ORDERED: ACETAMINOPHEN 500MG TABLET PO ONE (10:30)
[2019-12-18] MEDS: SODIUM CHLORIDE 0.9% 1,000 ML IV SCH (13:26)
[2019-12-18] MEDS ORDERED: IPRATROPIUM/ALBUTEROL 0.5-3(2.5)MG/3ML NEB HHN PRN (13:30)
[2019-12-18] MEDS ORDERED: ONDANSETRON HCL 4MG/2ML INJ IV PRN (13:30)
[2019-12-18] MEDS ORDERED: DIPHENHYDRAMINE 50MG/ML VIAL IV PRN (13:30)
[2019-12-18] MEDS ORDERED: CLONIDINE 0.1MG TABLET PO PRN (13:30)
[2019-12-18] MEDS ORDERED: ACETAMINOPHEN 325MG TABLET PO PRN (13:30)
[2019-12-18 13:54] LABS: PHOSPHORUS 2.9 mg/dL (2.5-4.9)
[2019-12-18] MEDS: OMEPRAZOLE 20MG CAPSULE EXTENDED RELEASE PO SCH (17:46)
[2019-12-18] MEDS ORDERED: ATORVASTATIN CALCIUM 40MG TABLET PO SCH (21:00)
[2019-12-18 21:05] VITALS: BP 155/93
[2019-12-18] MEDS: METOPROLOL TARTRATE 25MG TABLET PO SCH (22:00)
[2019-12-18] MEDS ORDERED: ATOR20TA65 PO (23:05)
[2019-12-18] MEDS ORDERED: ALPR0.25 MT (23:30)
[2019-12-18] MEDS ORDERED: LOSA50TA41 PO (23:30)
[2019-12-18] MEDS ORDERED: ASPI-1158 PO (23:30)
[2019-12-18] MEDS ORDERED: CHOL200026 (23:30)
[2019-12-19] VITALS: BP 167/79
[2019-12-19] MEDS ORDERED: DEXTROSE 50% WATER 50ML SYRINGE IV PRN
[2019-12-19 04:00] VITALS: BP 126/79
[2019-12-19] MEDS: OMEPRAZOLE 20MG CAPSULE EXTENDED RELEASE PO SCH (06:23)
[2019-12-19 07:05] LABS: BASOPHILS % 0.7 % (0.0-2.0); EOSINOPHILS % 0.5 % (0.0-5.0); HEMATOCRIT. 40.5 % (36.0-48.0); HEMOGLOBIN. 13.4 g/dL (12.0-16.0); LYMPHOCYTES % 19.2 % (20.0-50.0); MEAN CORPUSCULAR HEMOGLOBIN 29.4 pg (28.0-32.0); MEAN CORPUSCULAR VOLUME 89.2 fL (81.0-99.0); MEAN PLATELET VOLUME 7.4 fl (7.4-10.4); MONOCYTES % 5.6 % (2.0-8.0); PLATELET 304 x1000/uL (130-400); RED BLOOD CELL COUNT 4.54 mill/uL (4.2-5.4)
[2019-12-19] MEDS: BLOOD SUGAR DIAGNOSTIC STRIP TEST SCH ×2 (07:07→12:15)
[2019-12-19] MEDS: INSULIN LISPRO 100 UNITS/ML SUBCUT SCH ×2 (07:07→12:15)
[2019-12-19 08:00] VITALS: BP 128/86
[2019-12-19] MEDS: METOPROLOL TARTRATE 25MG TABLET PO SCH (08:30)
[2019-12-19] MEDS ORDERED: METOPROLOL TARTRATE 50MG TABLET PO ONE (09:00)
[2019-12-19] MEDS ORDERED: AMLODIPINE 10MG TABLET PO SCH (09:00)
[2019-12-19] MEDS: SODIUM CHLORIDE 0.9% 1,000 ML IV SCH (09:01)
[2019-12-19 09:38] LABS: CHLORIDE 103 mEq/L (98-107)
[2019-12-19 10:10] LABS: LDL CHOLESTEROL 90 mg/dL (5-100)
[2019-12-19 10:11] LABS: HDL CHOLESTEROL 46 mg/dL (40-59)
[2019-12-19] MEDS ORDERED: PANT40TA4 MT (10:40)
[2019-12-19 12:46] VITALS: BP 108/62
== END 2019-12-19 13:45 | disposition home health service (06) | DRG 241 ==
LOC: ER 07:47 → 8WST 12:25 → EDBEDREQTM 12:26 → EDBEDREQ 12:26 → ENRESERV 20:05
PROVIDERS: ADMIT Internal Medicine; ATTEND Internal Medicine
DX: K29.71 Gastritis, unspecified, with bleeding (principal); I10 Essential (primary) hypertension; D25.9 Leiomyoma of uterus, unspecified; E78.5 Hyperlipidemia, unspecified; F41.9 Anxiety disorder, unspecified; M41.9 Scoliosis, unspecified; N13.30 Unspecified hydronephrosis; Z96.653 Presence of artificial knee joint, bilateral; K52.9 Noninfective gastroenteritis and colitis, unspecified; E87.6 Hypokalemia; Z82.49 Family history of ischemic heart disease and other diseases of the circulatory system; I25.2 Old myocardial infarction; Z88.8 Allergy status to other drugs, medicaments and biological substances; Z91.041 Radiographic dye allergy status; Z79.899 Other long term (current) drug therapy
CPT/HCPCS: 36415; 71045; 74176; 80053; 80061; 81003; 82962; 83036; 83735; 83880; 84100; 84443; 84484; 85025; 93005; 93970; 99285; J2405

== ENCOUNTER 2020-06-22 09:12 | Emergency (ER) | payer MEDICARE, MEDICAID ==
[~2020-06-22] VITALS: Ht 165.1 cm; Wt 59.0 kg
[~2020-06-22 09:12] MED LIST changes: +ALPR0.25 MT; +ASPI-1406 PO; -ASPI325T85 PO; +CHOL200026; +PANT40TA51 MT
[2020-06-22] MEDS ORDERED: ASPIRIN 81MG TABLET PO ONE ×2 (09:30→09:45)
[2020-06-22 09:55] LABS: BASOPHILS % 1.1 % (0.0-2.0); EOSINOPHILS % 2.6 % (0.0-5.0); HEMATOCRIT. 41.4 % (36.0-48.0); HEMOGLOBIN. 13.6 g/dL (12.0-16.0); MEAN CORPUSCULAR HEMOGLOBIN 29.1 pg (28.0-32.0); MEAN CORPUSCULAR VOLUME 88.7 fL (81.0-99.0); MEAN PLATELET VOLUME 7.2 fl (7.4-10.4); MONOCYTES % 5.3 % (2.0-8.0); PLATELET 329 x1000/uL (130-400); RED BLOOD CELL COUNT 4.67 mill/uL (4.2-5.4)
[2020-06-22 10:01] LABS: CHLORIDE 107 mEq/L (98-107)
[2020-06-22 12:55] VITALS: BP 154/77
[2020-06-22 14:43] LABS: CLARITY URINE CLEAR (CLEAR); COLOR URINE YELLOW (YELLOW); KETONES URINE NEGATIVE (NEGATIVE); LEUKOCYTE ESTERASE URINE 1+ (NEGATIVE); NITRITE URINE NEGATIVE (NEGATIVE); OCCULT BLOOD URINE NEGATIVE (NEGATIVE); PROTEIN URINE NEGATIVE (NEGATIVE); SPECIFIC GRAVITY URINE 1.006 (1.005-1.030); UROBILINOGEN URINE 0.2 E.U./dL (0.2-1.0)
== END 2020-06-22 15:00 | disposition left against medical advice (07) ==
LOC: ER 09:31
DX: R53.1 Weakness (principal); R53.83 Other fatigue; I10 Essential (primary) hypertension; I25.2 Old myocardial infarction; I25.10 Atherosclerotic heart disease of native coronary artery without angina pectoris; Z88.8 Allergy status to other drugs, medicaments and biological substances; Z91.041 Radiographic dye allergy status; Z79.82 Long term (current) use of aspirin
CPT/HCPCS: 36415; 71045; 78582; 80053; 81003; 83690; 83880; 84484; 85025; 87086; 93005; 93970; 99285; A9540

== ENCOUNTER 2021-02-01 08:53 | Emergency (ER) | payer MEDICARE, MEDICAID ==
[~2021-02-01] VITALS: Ht 152.4 cm; Wt 52.0 kg
[2021-02-01] MEDS ORDERED: FAMOTIDINE 20MG/2ML VIAL IV STA (09:15)
[2021-02-01] MEDS ORDERED: SODIUM CHLORIDE 0.9% 250 ML IV ONE (09:15)
[2021-02-01 09:42] LABS: CHLORIDE 106 mEq/L (98-107)
[2021-02-01 09:44] LABS: BASOPHILS % 1.2 % (0.0-2.0); EOSINOPHILS % 2.9 % (0.0-5.0); HEMATOCRIT. 42.7 % (36.0-48.0); LYMPHOCYTES % 44.8 % (20.0-50.0); MEAN CORPUSCULAR HEMOGLOBIN 29.3 pg (28.0-32.0); MEAN CORPUSCULAR VOLUME 89.3 fL (81.0-99.0); MEAN PLATELET VOLUME 7.6 fl (7.4-10.4); MONOCYTES % 6.4 % (2.0-8.0); NEUTROPHILS % 44.7 % (40.0-76.0); PLATELET 371 x1000/uL (130-400); RED BLOOD CELL COUNT 4.78 mill/uL (4.2-5.4); RED CELL DISTRIBUTION WIDTH 14.2 % (11.6-14.6)
[2021-02-01 11:38] LABS: CLARITY URINE CLEAR (CLEAR); COLOR URINE YELLOW (YELLOW); KETONES URINE NEGATIVE (NEGATIVE); LEUKOCYTE ESTERASE URINE NEGATIVE (NEGATIVE); NITRITE URINE NEGATIVE (NEGATIVE); OCCULT BLOOD URINE NEGATIVE (NEGATIVE); PROTEIN URINE NEGATIVE (NEGATIVE); SPECIFIC GRAVITY URINE 1.007 (1.005-1.030); UROBILINOGEN URINE 0.2 E.U./dL (0.2-1.0)
[2021-02-01] MEDS ORDERED: OMEP10CA5 MT (12:59)
[2021-02-01 13:15] VITALS: BP 155/78
== END 2021-02-01 13:18 | disposition home or self-care (01) ==
LOC: ER 08:53
DX: R10.13 Epigastric pain (principal); I11.0 Hypertensive heart disease with heart failure; I50.9 Heart failure, unspecified; I25.2 Old myocardial infarction; Z79.82 Long term (current) use of aspirin; Z88.5 Allergy status to narcotic agent; Z91.041 Radiographic dye allergy status
CPT/HCPCS: 36415; 71045; 74176; 80053; 81003; 83690; 83880; 84484; 85025; 87086; 93005; 96361; 96374; 99285; J3490; J7050

== ENCOUNTER 2021-06-20 09:10 | Emergency (ER) | payer MEDICARE, MEDICAID ==
[~2021-06-20] VITALS: Ht 162.6 cm; Wt 59.0 kg
[~2021-06-20 09:10] MED LIST changes: +OMEP10CA5 MT
[2021-06-20 09:12] VITALS: BP 136/84
[2021-06-20] MEDS ORDERED: SODIUM CHLORIDE 0.9% 1,000 ML IV ONE (10:00)
[2021-06-20 10:35] LABS: BASOPHILS % 0.8 % (0.0-2.0); EOSINOPHILS % 2.6 % (0.0-5.0); HEMATOCRIT. 39.2 % (36.0-48.0); HEMOGLOBIN. 13.2 g/dL (12.0-16.0); LYMPHOCYTES % 36.1 % (20.0-50.0); MEAN CORPUSCULAR HEMOGLOBIN 29.3 pg (28.0-32.0); MEAN CORPUSCULAR VOLUME 86.7 fL (81.0-99.0); MEAN PLATELET VOLUME 7.3 fl (7.4-10.4); MONOCYTES % 10.1 % (2.0-8.0); NEUTROPHILS % 50.4 % (40.0-76.0); PLATELET 292 x1000/uL (130-400); RED BLOOD CELL COUNT 4.52 mill/uL (4.2-5.4); RED CELL DISTRIBUTION WIDTH 14.1 % (11.6-14.6)
[2021-06-20 10:36] LABS: CHLORIDE 105 mEq/L (98-107)
== END 2021-06-20 12:37 | disposition home or self-care (01) ==
LOC: ER 09:34
DX: K52.9 Noninfective gastroenteritis and colitis, unspecified (principal); I11.0 Hypertensive heart disease with heart failure; I50.9 Heart failure, unspecified; Z91.041 Radiographic dye allergy status; Z88.6 Allergy status to analgesic agent; Z79.899 Other long term (current) drug therapy; Z79.82 Long term (current) use of aspirin
CPT/HCPCS: 36415; 80053; 83690; 85025; 96360; 99283; J7030

== ENCOUNTER 2021-07-24 14:32 | Emergency (ER) | payer MEDICARE, MEDICAID ==
[~2021-07-24] VITALS: Ht 160 cm; Wt 54.0 kg
[2021-07-24 15:47] LABS: CLARITY URINE CLEAR (CLEAR); COLOR URINE YELLOW (YELLOW); KETONES URINE NEGATIVE (NEGATIVE); LEUKOCYTE ESTERASE URINE NEGATIVE (NEGATIVE); NITRITE URINE NEGATIVE (NEGATIVE); OCCULT BLOOD URINE NEGATIVE (NEGATIVE); PH URINE 7.5 (4.5-8.0); PROTEIN URINE NEGATIVE (NEGATIVE); SPECIFIC GRAVITY URINE 1.009 (1.005-1.030); UROBILINOGEN URINE 0.2 E.U./dL (0.2-1.0)
[2021-07-24 16:09] LABS: BASOPHILS % 0.7 % (0.0-2.0); EOSINOPHILS % 1.9 % (0.0-5.0); HEMATOCRIT. 42.1 % (36.0-48.0); HEMOGLOBIN. 13.8 g/dL (12.0-16.0); LYMPHOCYTES % 31.3 % (20.0-50.0); MEAN CORPUSCULAR HEMOGLOBIN 28.5 pg (28.0-32.0); MEAN CORPUSCULAR VOLUME 87.3 fL (81.0-99.0); MEAN PLATELET VOLUME 7.6 fl (7.4-10.4); MONOCYTES % 5.8 % (2.0-8.0); NEUTROPHILS % 60.3 % (40.0-76.0); PLATELET 391 x1000/uL (130-400); RED BLOOD CELL COUNT 4.83 mill/uL (4.2-5.4); RED CELL DISTRIBUTION WIDTH 14.4 % (11.6-14.6)
[2021-07-24 16:42] LABS: CHLORIDE 106 mEq/L (98-107)
[2021-07-24 16:44] LABS: PROTHROMBIN TIME 10.4 sec (9.6-11.0)
[2021-07-24] MEDS ORDERED: ACETAMINOPHEN 325MG TABLET PO STA (16:59)
[2021-07-24 19:05] VITALS: BP 176/74
== END 2021-07-24 19:34 | disposition home or self-care (01) ==
LOC: ER 14:32
DX: R10.32 Left lower quadrant pain (principal); I11.0 Hypertensive heart disease with heart failure; I25.2 Old myocardial infarction; I50.9 Heart failure, unspecified; Z98.890 Other specified postprocedural states; Z79.82 Long term (current) use of aspirin; Z88.5 Allergy status to narcotic agent; Z91.041 Radiographic dye allergy status
CPT/HCPCS: 36415; 74176; 80053; 81003; 85025; 86850; 86900; 93005; 99285

== ENCOUNTER 2021-09-27 08:09 | Emergency (ER) | payer MEDICARE, MEDICAID ==
[~2021-09-27] VITALS: Ht 170.2 cm; Wt 64.0 kg
[2021-09-27 09:19] LABS: CHLORIDE 107 mEq/L (98-107)
[2021-09-27 09:26] LABS: BASOPHILS % 1.1 % (0.0-2.0); EOSINOPHILS % 2.3 % (0.0-5.0); HEMATOCRIT. 39.9 % (36.0-48.0); HEMOGLOBIN. 13.3 g/dL (12.0-16.0); MEAN CORPUSCULAR HEMOGLOBIN 29.4 pg (28.0-32.0); MEAN PLATELET VOLUME 7.6 fl (7.4-10.4); MONOCYTES % 6.6 % (2.0-8.0); PLATELET 334 x1000/uL (130-400); RED BLOOD CELL COUNT 4.53 mill/uL (4.2-5.4)
[2021-09-27 12:36] VITALS: BP 132/63
== END 2021-09-27 12:55 | disposition home or self-care (01) ==
LOC: ER 08:12
DX: R00.2 Palpitations (principal); F41.9 Anxiety disorder, unspecified; I11.0 Hypertensive heart disease with heart failure; I50.9 Heart failure, unspecified; I25.2 Old myocardial infarction; E78.00 Pure hypercholesterolemia, unspecified; Z88.5 Allergy status to narcotic agent; Z91.041 Radiographic dye allergy status
CPT/HCPCS: 36415; 71045; 80053; 83880; 84484; 85025; 93005; 99285

== ENCOUNTER 2021-12-21 10:00 | Emergency (ER) | payer MEDICARE, MEDICAID ==
[~2021-12-21] VITALS: Ht 165.1 cm; Wt 66.0 kg
[2021-12-21 13:07] LABS: BASOPHILS % 0.5 % (0.0-2.0); HEMATOCRIT. 43.1 % (36.0-48.0); HEMOGLOBIN. 14.3 g/dL (12.0-16.0); LYMPHOCYTES % 28.9 % (20.0-50.0); MEAN CORPUSCULAR HEMOGLOBIN 29.5 pg (28.0-32.0); MEAN CORPUSCULAR VOLUME 88.8 fL (81.0-99.0); MEAN PLATELET VOLUME 7.9 fl (7.4-10.4); MONOCYTES % 5.1 % (2.0-8.0); NEUTROPHILS % 63.5 % (40.0-76.0); PLATELET 377 x1000/uL (130-400); RED BLOOD CELL COUNT 4.85 mill/uL (4.2-5.4)
[2021-12-21 13:11] LABS: CHLORIDE 104 mEq/L (98-107)
[2021-12-21 13:13] LABS: CLARITY URINE CLEAR (CLEAR); COLOR URINE YELLOW (YELLOW); KETONES URINE NEGATIVE (NEGATIVE); LEUKOCYTE ESTERASE URINE NEGATIVE (NEGATIVE); NITRITE URINE NEGATIVE (NEGATIVE); OCCULT BLOOD URINE NEGATIVE (NEGATIVE); PROTEIN URINE NEGATIVE (NEGATIVE); SPECIFIC GRAVITY URINE 1.005 (1.005-1.030); UROBILINOGEN URINE 0.2 E.U./dL (0.2-1.0)
[2021-12-21 13:21] LABS: CREATINE KINASE 40 IU/L (26-192)
[2021-12-21] MEDS ORDERED: SODIUM CHLORIDE 0.9% 500 ML IV ONE (13:30)
[2021-12-21] MEDS ORDERED: ACETAMINOPHEN 325MG TABLET PO ONE (15:00)
[2021-12-21] MEDS ORDERED: IBUPROFEN 400MG TABLET PO ONE (15:00)
[2021-12-21 16:19] VITALS: BP 150/79
== END 2021-12-21 16:28 | disposition home or self-care (01) ==
LOC: ER 10:17
DX: M79.604 Pain in right leg (principal); M79.651 Pain in right thigh; R19.7 Diarrhea, unspecified; I11.0 Hypertensive heart disease with heart failure; I50.9 Heart failure, unspecified; I25.2 Old myocardial infarction
CPT/HCPCS: 36415; 71045; 80053; 81003; 82550; 83605; 85025; 93005; 93971; 96360; 99285; J7040

== ENCOUNTER 2022-05-27 07:15 | Inpatient (IN) | payer MEDICARE, OTHER ==
[~2022-05-27] VITALS: Ht 152.4 cm; Wt 59.2 kg
[2022-05-27] MEDS ORDERED: ONDANSETRON HCL 4MG/2ML INJ IV STA (07:48)
[2022-05-27] MEDS ORDERED: ASPIRIN 81MG TABLET PO ONE (08:00)
[2022-05-27] MEDS ORDERED: SODIUM CHLORIDE 0.9% 1,000 ML IV ONE (08:00)
[2022-05-27] MEDS ORDERED: NITROGLYCERIN 0.4MG TABLET SL SL PRN ×2 (08:00→19:45)
[2022-05-27 08:47] LABS: CLARITY URINE CLEAR (CLEAR); COLOR URINE YELLOW (YELLOW); KETONES URINE NEGATIVE (NEGATIVE); LEUKOCYTE ESTERASE URINE NEGATIVE (NEGATIVE); NITRITE URINE NEGATIVE (NEGATIVE); OCCULT BLOOD URINE NEGATIVE (NEGATIVE); PROTEIN URINE NEGATIVE (NEGATIVE); SPECIFIC GRAVITY URINE 1.009 (1.005-1.030); UROBILINOGEN URINE 0.2 E.U./dL (0.2-1.0)
[2022-05-27 09:04] LABS: BASOPHILS % 0.9 % (0.0-2.0); EOSINOPHILS % 1.2 % (0.0-5.0); HEMATOCRIT. 45.8 % (36.0-48.0); HEMOGLOBIN. 14.9 g/dL (12.0-16.0); LYMPHOCYTES % 27.5 % (20.0-50.0); MEAN CORPUSCULAR HEMOGLOBIN 28.8 pg (28.0-32.0); MEAN CORPUSCULAR VOLUME 88.2 fL (81.0-99.0); MEAN PLATELET VOLUME 7.1 fl (7.4-10.4); MONOCYTES % 4.8 % (2.0-8.0); NEUTROPHILS % 65.6 % (40.0-76.0); PLATELET 376 x1000/uL (130-400); RED BLOOD CELL COUNT 5.19 mill/uL (4.2-5.4); RED CELL DISTRIBUTION WIDTH 14.3 % (11.6-14.6)
[2022-05-27 09:17] LABS: CHLORIDE 103 mEq/L (98-107)
[2022-05-27] MEDS ORDERED: LIDOCAINE HCL 1% 30ML VIAL (10MG/ML) ONE (13:06)
[2022-05-27] MEDS ORDERED: METO25TA6 MT (19:29)
[2022-05-27 19:35] VITALS: BP 162/93
[2022-05-27] MEDS ORDERED: NALOXONE HCL 0.4MG/ML VIAL IV PRN (19:45)
[2022-05-27] MEDS ORDERED: HYDROCODONE/ACETAMINOPHEN 10/325MG TABLET PO PRN ×2 (19:45)
[2022-05-27 20:04] VITALS: BP 162/93
[2022-05-27] MEDS: METOPROLOL TARTRATE 25MG TABLET PO SCH (20:42)
[2022-05-27] MEDS ORDERED: ACETAMINOPHEN 325MG TABLET PO PRN (21:00)
[2022-05-28] VITALS: BP 98/50
[2022-05-28 04:03] VITALS: BP 111/67
[2022-05-28 08:00] VITALS: BP 155/88
[2022-05-28] MEDS: ENOXAPARIN 40MG/0.4ML SYR SUBCUT SCH (10:35)
[2022-05-28] MEDS: METOPROLOL TARTRATE 25MG TABLET PO SCH ×2 (10:37→21:09)
[2022-05-28] MEDS: AMLODIPINE 10MG TABLET PO SCH (10:37)
[2022-05-28] MEDS: ASPIRIN 81MG TABLET PO SCH (10:38)
[2022-05-28] MEDS ORDERED: MECLIZINE 25MG TABLET PO PRN (11:45)
[2022-05-28 12:00] VITALS: BP 146/79
[2022-05-28] MEDS ORDERED: POTASSIUM CHLORIDE 20MEQ TABLET SR PO NR (13:00)
[2022-05-28 16:00] VITALS: BP_SYST 130; BP_SYST 134; BP_SYST 135; BP_DIAS 65; BP_DIAS 77; BP_DIAS 80
[2022-05-28 20:05] VITALS: BP_SYST 137; BP_SYST 147; BP_SYST 150; BP_DIAS 75; BP_DIAS 82; BP_DIAS 85
[2022-05-28] MEDS ORDERED: ATORVASTATIN CALCIUM 40MG TABLET PO SCH (21:00)
[2022-05-29 00:16] VITALS: BP 110/64
[2022-05-29 04:27] VITALS: BP 145/77
[2022-05-29 06:19] LABS: CHLORIDE 104 mEq/L (98-107)
[2022-05-29 06:21] LABS: BASOPHILS % 1.2 % (0.0-2.0); EOSINOPHILS % 2.9 % (0.0-5.0); HEMATOCRIT. 40.3 % (36.0-48.0); HEMOGLOBIN. 13.2 g/dL (12.0-16.0); LYMPHOCYTES % 35.3 % (20.0-50.0); MEAN CORPUSCULAR HEMOGLOBIN 28.7 pg (28.0-32.0); MEAN CORPUSCULAR VOLUME 87.4 fL (81.0-99.0); MEAN PLATELET VOLUME 7.9 fl (7.4-10.4); MONOCYTES % 7.3 % (2.0-8.0); NEUTROPHILS % 53.3 % (40.0-76.0); PLATELET 341 x1000/uL (130-400); RED BLOOD CELL COUNT 4.61 mill/uL (4.2-5.4); RED CELL DISTRIBUTION WIDTH 14.1 % (11.6-14.6)
[2022-05-29 08:00] VITALS: BP 118/68
[2022-05-29] MEDS: ASPIRIN 81MG TABLET PO SCH (09:58)
[2022-05-29] MEDS: METOPROLOL TARTRATE 25MG TABLET PO SCH (09:58)
[2022-05-29] MEDS: ENOXAPARIN 40MG/0.4ML SYR SUBCUT SCH (09:59)
[2022-05-29] MEDS: AMLODIPINE 10MG TABLET PO SCH (09:59)
[2022-05-29 11:34] VITALS: BP 118/68
[2022-05-29 12:00] VITALS: BP 118/64
== END 2022-05-29 12:10 | disposition home or self-care (01) | DRG 48 ==
LOC: ER 07:15 → CANBEDREQ 12:21 → MICUSO 14:00 → 7WST 17:00
PROVIDERS: ADMIT Internal Medicine; ATTEND Internal Medicine
DX: G90.8 Other disorders of autonomic nervous system (principal); I11.0 Hypertensive heart disease with heart failure; I50.22 Chronic systolic (congestive) heart failure; E78.5 Hyperlipidemia, unspecified; E87.6 Hypokalemia; I25.10 Atherosclerotic heart disease of native coronary artery without angina pectoris; K57.90 Diverticulosis of intestine, part unspecified, without perforation or abscess without bleeding; H93.19 Tinnitus, unspecified ear; Z20.822 Contact with and (suspected) exposure to COVID-19; I25.2 Old myocardial infarction; Z79.899 Other long term (current) drug therapy; Z79.82 Long term (current) use of aspirin; Z86.73 Personal history of transient ischemic attack (TIA), and cerebral infarction without residual deficits; Z87.891 Personal history of nicotine dependence; Z88.8 Allergy status to other drugs, medicaments and biological substances
CPT/HCPCS: 36415; 70551; 71045; 80048; 80053; 80061; 81003; 83735; 83880; 84484; 85025; 87426; 93005; 93306; 93880; 93970; 97162; 97535; 99285; C1893; J1650; J2405; J3490; J7030

== ENCOUNTER 2023-02-25 10:43 | Emergency (ER) | payer MEDICARE, MEDICAID ==
[~2023-02-25] VITALS: Ht 167.6 cm; Wt 70.0 kg
[~2023-02-25 10:43] MED LIST changes: -ALPR0.25 MT; -CHOL200026; -METO-385 MT; +METO25TA6 MT
[2023-02-25 10:46] VITALS: TEMP 98.3; O2SAT 95
[2023-02-25] MEDS ORDERED: ONDANSETRON HCL 4MG/2ML INJ IV STA (11:12)
[2023-02-25] MEDS ORDERED: KETOROLAC 30MG/ML VIAL IV STA (11:12)
[2023-02-25] MEDS ORDERED: SODIUM CHLORIDE 0.9% 1,000 ML IV ONE (11:15)
[2023-02-25 11:47] LABS: BASOPHILS % 0.8 % (0.0-2.0); EOSINOPHILS % 1.7 % (0.0-5.0); HEMATOCRIT. 39.8 % (36.0-48.0); HEMOGLOBIN. 13.1 g/dL (12.0-16.0); LYMPHOCYTES % 38.2 % (20.0-50.0); MEAN CORPUSCULAR HEMOGLOBIN 29.9 pg (28.0-32.0); MEAN CORPUSCULAR HGB CONC 32.9 g/dL (31.0-37.0); MEAN CORPUSCULAR VOLUME 90.9 fL (81.0-99.0); MEAN PLATELET VOLUME 7.1 fl (7.4-10.4); MONOCYTES % 7.1 % (2.0-8.0); NEUTROPHILS % 52.2 % (40.0-76.0); PLATELET 300 x1000/uL (130-400); RED BLOOD CELL COUNT 4.38 mill/uL (4.2-5.4); RED CELL DISTRIBUTION WIDTH 13.8 % (11.6-14.6); WHITE BLOOD COUNT 5.9 x1000/uL (4.5-11.0)
[2023-02-25 11:58] LABS: PROTHROMBIN TIME 10.9 sec (9.6-11.0)
[2023-02-25 12:19] LABS: ALANINE AMINOTRANSFERASE < 7 IU/L (10-49); ALBUMIN 4.3 g/dL (3.2-4.8); ASPARTATE AMINOTRANSFERASE 9 IU/L (<34); BILIRUBIN TOTAL 0.7 mg/dL (0.1-1.0); CALCIUM 9.3 mg/dL (8.7-10.4); CARBON DIOXIDE 26 mEq/L (21-32); CHLORIDE 105 mEq/L (98-107); CREATININE 0.6 mg/dL (0.6-1.0); GLUCOSE 106 mg/dL (70-105); POTASSIUM 3.5 mEq/L (3.5-5.1); PROTEIN TOTAL 7.2 g/dL (6.0-8.3); SODIUM 141 mEq/L (136-145); UREA NITROGEN BLOOD 8 mg/dL (9-23)
[2023-02-25 12:24] LABS: TROPONIN I HIGH SENSITIVITY < 4 ng/L (3.0-34)
[2023-02-25 12:50] VITALS: BP 175/84; PULSE 93; RESP 16
[2023-02-25 14:27] LABS: CLARITY URINE CLEAR (CLEAR); COLOR URINE PALE YELLOW (YELLOW); GLUCOSE URINE NEGATIVE (NEGATIVE); KETONES URINE NEGATIVE (NEGATIVE); PH URINE 7.5 (4.5-8.0); PROTEIN URINE NEGATIVE (NEGATIVE)
[2023-02-25 14:28] LABS: LEUKOCYTE ESTERASE URINE TRACE (NEGATIVE); NITRITE URINE NEGATIVE (NEGATIVE); OCCULT BLOOD URINE NEGATIVE (NEGATIVE); UROBILINOGEN URINE 0.2 E.U./dL (0.2-1.0)
[2023-02-25 14:41] LABS: BACTERIA URINE NONE SEEN; RBC URINE NONE SEEN /hpf (0-2); SQUAMOUS EPITHELIAL CELL URINE 1+ /lpf (RARE/1+); WBC URINE 0-2 /hpf (0-2); YEAST URINE NONE SEEN
[2023-02-25 14:46] LABS: TROPONIN I HIGH SENSITIVITY < 4 ng/L (3.0-34)
== END 2023-02-25 20:43 | disposition left against medical advice (07) ==
LOC: ER 10:55
DX: R07.89 Other chest pain (principal); I25.2 Old myocardial infarction; I10 Essential (primary) hypertension; Z88.8 Allergy status to other drugs, medicaments and biological substances; Z91.041 Radiographic dye allergy status
CPT/HCPCS: 80053; 81003; 85025; 85610; 84484; 36415; 71045; 74176; 76705; 96361; 96374; 96375; 99285; J1885; J2405; J7030; Z7610 ×2

== ENCOUNTER 2023-07-16 01:20 | Emergency (ER) | payer MEDICARE, OTHER ==
[~2023-07-16] VITALS: Ht 165.1 cm; Wt 69.0 kg
[2023-07-16 01:22] VITALS: O2SAT 97
[2023-07-16 01:56] VITALS: TEMP 98.4
[2023-07-16] MEDS: ACETAMINOPHEN 325MG TABLET PO ONE (01:56)
[2023-07-16] MEDS: MECLIZINE 12.5MG TABLET PO NR (01:56)
[2023-07-16] MEDS: ONDANSETRON 4MG ODT PO ONE (01:57)
[2023-07-16] MEDS: MECLIZINE 25MG TABLET PO ONE (01:58)
[2023-07-16] MEDS: ONDANSETRON HCL 4MG/2ML INJ IV ONE (01:59)
[2023-07-16 02:01] LABS: BASOPHILS % 0.8 % (0.0-2.0); HEMATOCRIT. 39.1 % (36.0-48.0); HEMOGLOBIN. 13.1 g/dL (12.0-16.0); LYMPHOCYTES % 42.7 % (20.0-50.0); MEAN CORPUSCULAR HEMOGLOBIN 30.3 pg (28.0-32.0); MEAN CORPUSCULAR HGB CONC 33.6 g/dL (31.0-37.0); MEAN PLATELET VOLUME 7.3 fl (7.4-10.4); MONOCYTES % 5.9 % (2.0-8.0); NEUTROPHILS % 47.6 % (40.0-76.0); PLATELET 314 x1000/uL (130-400); RED BLOOD CELL COUNT 4.34 mill/uL (4.2-5.4); WHITE BLOOD COUNT 7.4 x1000/uL (4.5-11.0)
[2023-07-16 02:19] LABS: ALANINE AMINOTRANSFERASE < 7 IU/L (10-49); ALBUMIN 4.7 g/dL (3.2-4.8); ASPARTATE AMINOTRANSFERASE 12 IU/L (<34); BILIRUBIN TOTAL 0.5 mg/dL (0.1-1.0); CALCIUM 9.1 mg/dL (8.7-10.4); CARBON DIOXIDE 25 mEq/L (21-32); CHLORIDE 106 mEq/L (98-107); CREATININE 0.6 mg/dL (0.6-1.0); GLUCOSE 126 mg/dL (70-105); POTASSIUM 3.4 mEq/L (3.5-5.1); PROTEIN TOTAL 8.6 g/dL (6.0-8.3); SODIUM 140 mEq/L (136-145); UREA NITROGEN BLOOD 8 mg/dL (9-23)
[2023-07-16 02:46] LABS: ETHANOL BLOOD < 10 mg/dL (<10); TROPONIN I HIGH SENSITIVITY < 4 ng/L (3.0-34)
[2023-07-16 05:20] LABS: *AMPHETAMINES SCREEN URINE NEGATIVE (NEGATIVE); *BARBITURATES SCREEN URINE NEGATIVE (NEGATIVE); *BENZODIAZEPINES SCREEN URINE NEGATIVE (NEGATIVE); *COCAINE SCREEN URINE NEGATIVE (NEGATIVE); CANNABINOID URINE SCREEN NEGATIVE (NEGATIVE); ECSTASY MDMA SCREEN URINE NEGATIVE (NEGATIVE); METHADONE URINE SCREEN Neg (NEGATIVE); OPIATES URINE SCREEN NEGATIVE (NEGATIVE); PHENCYCLIDINE URINE SCREEN NEGATIVE (NEGATIVE)
[2023-07-16] MEDS: AMLODIPINE 10MG TABLET PO NR (06:04)
[2023-07-16] MEDS ORDERED: MECL-299 MT (07:56)
[2023-07-16 07:57] VITALS: BP 145/79; PULSE 73; RESP 22
== END 2023-07-16 08:25 | disposition left against medical advice (07) ==
LOC: ER 01:20 → CANBEDREQ 05:29 → ER 08:25
DX: R42 Dizziness and giddiness (principal); I25.2 Old myocardial infarction; I10 Essential (primary) hypertension; E78.00 Pure hypercholesterolemia, unspecified; Z91.041 Radiographic dye allergy status; Z88.5 Allergy status to narcotic agent; Z79.899 Other long term (current) drug therapy; Z79.82 Long term (current) use of aspirin
CPT/HCPCS: 80053; 80305; 80320; 83880; 85025; 84484; 36415; 71045; 70450; 93005; 99285; J8597 ×2; Q0162; G0480

== ENCOUNTER 2023-11-06 15:57 | Emergency (ER) | payer MEDICARE, OTHER ==
[~2023-11-06] VITALS: Ht 162.6 cm; Wt 60.0 kg
[~2023-11-06 15:57] MED LIST changes: +MECL-299 MT
[2023-11-06 16:00] VITALS: O2SAT 99
[2023-11-06] MEDS ORDERED: OXYCODONE HCL/ACETAMINOPHEN 5/325MG TABLET PO ONE (16:15)
[2023-11-06] MEDS ORDERED: HYDRALAZINE 20MG/ML VIAL IV ONE (16:15)
[2023-11-06 17:02] LABS: CHLORIDE 107 mEq/L (98-107); POTASSIUM 3.5 mEq/L (3.5-5.1); SODIUM 141 mEq/L (136-145)
[2023-11-06 17:03] LABS: CALCIUM 9.7 mg/dL (8.7-10.4); CARBON DIOXIDE 24 mEq/L (21-32)
[2023-11-06 17:08] LABS: CREATININE 0.6 mg/dL (0.6-1.0); GLUCOSE 91 mg/dL (70-105); UREA NITROGEN BLOOD 10 mg/dL (9-23)
[2023-11-06 17:12] LABS: TROPONIN I HIGH SENSITIVITY < 4 ng/L (3.0-34)
[2023-11-06 17:14] LABS: BASOPHILS % 0.6 % (0.0-2.0); EOSINOPHILS % 1.7 % (0.0-5.0); HEMATOCRIT. 38.2 % (36.0-48.0); HEMOGLOBIN. 12.6 g/dL (12.0-16.0); MEAN CORPUSCULAR HEMOGLOBIN 29.9 pg (28.0-32.0); MEAN CORPUSCULAR HGB CONC 32.9 g/dL (31.0-37.0); MEAN CORPUSCULAR VOLUME 90.8 fL (81.0-99.0); MEAN PLATELET VOLUME 7.6 fl (7.4-10.4); MONOCYTES % 7.7 % (2.0-8.0); PLATELET 328 x1000/uL (130-400); RED BLOOD CELL COUNT 4.21 mill/uL (4.2-5.4); RED CELL DISTRIBUTION WIDTH 14.6 % (11.6-14.6); WHITE BLOOD COUNT 7.6 x1000/uL (4.5-11.0)
[2023-11-06 17:31] LABS: CLARITY URINE CLOUDY (CLEAR); COLOR URINE YELLOW (YELLOW); GLUCOSE URINE NEGATIVE (NEGATIVE); KETONES URINE NEGATIVE (NEGATIVE); LEUKOCYTE ESTERASE URINE 3+ (NEGATIVE); NITRITE URINE NEGATIVE (NEGATIVE); OCCULT BLOOD URINE NEGATIVE (NEGATIVE); PROTEIN URINE NEGATIVE (NEGATIVE); SPECIFIC GRAVITY URINE 1.006 (1.005-1.030); UROBILINOGEN URINE 0.2 E.U./dL (0.2-1.0)
[2023-11-06 18:09] LABS: RBC URINE 0-2 /hpf (0-2); SQUAMOUS EPITHELIAL CELL URINE 2+ /lpf (RARE/1+)
[2023-11-06 18:10] LABS: BACTERIA URINE 2+
[2023-11-06] MEDS ORDERED: KETOROLAC 15MG/ML VIAL IV ONE (18:15)
[2023-11-06] MEDS ORDERED: CEFP200T13 MT (18:35)
[2023-11-06] MEDS: ACETAMINOPHEN 325MG TABLET PO ONE (19:06)
[2023-11-06 20:09] VITALS: BP 172/78; PULSE 68; RESP 16; TEMP 98.8
== END 2023-11-06 20:10 | disposition home or self-care (01) ==
LOC: ER 16:09
DX: N39.0 Urinary tract infection, site not specified (principal); E78.00 Pure hypercholesterolemia, unspecified; I25.2 Old myocardial infarction; I10 Essential (primary) hypertension; Z91.048 Other nonmedicinal substance allergy status; Z88.5 Allergy status to narcotic agent; Z79.899 Other long term (current) drug therapy; Z79.82 Long term (current) use of aspirin
CPT/HCPCS: 36415; 72170; 74176; 80048; 81003; 84484; 85025; 99284

== ENCOUNTER 2024-01-07 15:12 | Emergency (ER) | payer MEDICARE, OTHER ==
[~2024-01-07] VITALS: Ht 157.5 cm; Wt 65.0 kg
[~2024-01-07 15:12] MED LIST changes: +CEFP200T13 MT
[2024-01-07 15:18] VITALS: BP 178/83; PULSE 88; RESP 18; TEMP 98.1; O2SAT 100
[2024-01-07 15:53] VITALS: O2SAT 98
[2024-01-07] MEDS ORDERED: KETOROLAC 15MG/ML VIAL IV ONE (16:15)
[2024-01-07] MEDS ORDERED: METOCLOPRAMIDE HCL 10MG/2ML VIAL IV ONE (16:15)
[2024-01-07 16:41] LABS: CHLORIDE 109 mEq/L (98-107); POTASSIUM 3.4 mEq/L (3.5-5.1); SODIUM 142 mEq/L (136-145)
[2024-01-07 16:42] LABS: BASOPHILS % 0.6 % (0.0-2.0); CALCIUM 9.1 mg/dL (8.7-10.4); CARBON DIOXIDE 26 mEq/L (21-32); EOSINOPHILS % 2.5 % (0.0-5.0); HEMATOCRIT. 38.1 % (36.0-48.0); HEMOGLOBIN. 12.3 g/dL (12.0-16.0); LYMPHOCYTES % 40.1 % (20.0-50.0); MEAN CORPUSCULAR HEMOGLOBIN 28.9 pg (28.0-32.0); MEAN CORPUSCULAR HGB CONC 32.2 g/dL (31.0-37.0); MEAN CORPUSCULAR VOLUME 89.6 fL (81.0-99.0); MEAN PLATELET VOLUME 7.5 fl (7.4-10.4); NEUTROPHILS % 49.8 % (40.0-76.0); PLATELET 305 x1000/uL (130-400); RED BLOOD CELL COUNT 4.25 mill/uL (4.2-5.4); RED CELL DISTRIBUTION WIDTH 14.2 % (11.6-14.6); WHITE BLOOD COUNT 6.5 x1000/uL (4.5-11.0)
[2024-01-07 16:47] LABS: CREATININE 0.6 mg/dL (0.6-1.0); GLUCOSE 119 mg/dL (70-105); UREA NITROGEN BLOOD 7 mg/dL (9-23)
[2024-01-07 16:49] LABS: ALANINE AMINOTRANSFERASE 8 IU/L (10-49); ALBUMIN 4.4 g/dL (3.2-4.8); ASPARTATE AMINOTRANSFERASE 14 IU/L (<34); BILIRUBIN TOTAL 0.3 mg/dL (0.1-1.0); PROTEIN TOTAL 7.8 g/dL (6.0-8.3)
[2024-01-07 17:25] LABS: ERYTHROCYTE SEDIMENTATION RATE 31 mm/hr (0-30)
[2024-01-07] MEDS: METOCLOPRAMIDE HCL 10MG/2ML VIAL IV ONE (17:57)
[2024-01-07] MEDS: KETOROLAC 15MG/ML VIAL IV ONE (17:59)
== END 2024-01-07 18:50 | disposition home or self-care (01) ==
LOC: ER 15:12
DX: R51.9 Headache, unspecified (principal); I10 Essential (primary) hypertension; E78.00 Pure hypercholesterolemia, unspecified; I25.2 Old myocardial infarction; Z79.899 Other long term (current) drug therapy; Z79.82 Long term (current) use of aspirin; Z88.8 Allergy status to other drugs, medicaments and biological substances; Z91.041 Radiographic dye allergy status
CPT/HCPCS: 99285; 96374; 70450; 96375; 80053; 85025; 85651; 36415; J1885; J2765; C1893

== ENCOUNTER 2024-12-13 11:18 | Emergency (ER) | payer MEDICARE, MEDICAID ==
[~2024-12-13] VITALS: Ht 154.9 cm; Wt 50.0 kg
[~2024-12-13 11:18] MED LIST changes: -AMLO10TA4 PO; +AMLO2.5T45 PO; -CEFP200T13 MT; +CHOL2000 PO; +FURO-151 MT; -METO25TA6 MT; +METO25TA6 PO; +POTA-189 MT
[2024-12-13 11:33] VITALS: O2SAT 97
[2024-12-13 11:49] VITALS: TEMP 36.7; O2SAT 95
[2024-12-13 13:14] LABS: BASOPHILS % 0.9 % (0.0-2.0); EOSINOPHILS % 1.8 % (0.0-5.0); HEMATOCRIT. 40.0 % (36.0-48.0); HEMOGLOBIN. 13.2 g/dL (12.0-16.0); LYMPHOCYTES % 36.3 % (20.0-50.0); MEAN PLATELET VOLUME 7.0 fl (7.4-10.4); MONOCYTES % 6.1 % (2.0-8.0); NEUTROPHILS % 54.9 % (40.0-76.0); PLATELET 350 x1000/uL (130-400); RED BLOOD CELL COUNT 4.54 mill/uL (4.2-5.4); RED CELL DISTRIBUTION WIDTH 15.8 % (11.6-14.6)
[2024-12-13 13:27] LABS: CREATININE 0.6 mg/dL (0.6-1.0)
[2024-12-13 13:28] LABS: INR 1.0; TROPONIN I HIGH SENSITIVITY < 4 ng/L (3.0-34); UREA NITROGEN BLOOD 5 mg/dL (9-23)
[2024-12-13 13:29] LABS: ASPARTATE AMINOTRANSFERASE 13 IU/L (<34)
[2024-12-13 13:30] LABS: BILIRUBIN DIRECT < 0.1 mg/dL (<=3.0); BILIRUBIN TOTAL 0.4 mg/dL (0.1-1.0); PROTEIN TOTAL 8.8 g/dL (6.0-8.3)
[2024-12-13] MEDS: HYDROCODONE/ACETAMINOPHEN 5/325MG TABLET PO ONE (14:31)
[2024-12-13 14:32] VITALS: BP 169/97; PULSE 92; RESP 16
[2024-12-13] MEDS: IBUPROFEN 400MG TABLET PO ONE (14:32)
[2024-12-13] MEDS: POTASSIUM CHLORIDE 20MEQ TABLET SR PO ONE (14:32)
[2024-12-13] MEDS ORDERED: HYDR-4001 MT (14:40)
[2024-12-13] MEDS ORDERED: IBUP-2028 MT (14:40)
== END 2024-12-13 14:52 | disposition home or self-care (01) ==
LOC: ER 11:18
DX: M79.672 Pain in left foot (principal); M72.2 Plantar fascial fibromatosis; I10 Essential (primary) hypertension; I25.2 Old myocardial infarction; I48.91 Unspecified atrial fibrillation; Z79.82 Long term (current) use of aspirin; Z79.899 Other long term (current) drug therapy; Z88.5 Allergy status to narcotic agent; Z88.8 Allergy status to other drugs, medicaments and biological substances
CPT/HCPCS: 36415; 71045; 73630; 80048; 80076; 83880; 84484; 85025; 93005; 93970; 99285